=== PATIENT | male | born 1970 | race Hispanic/Latino ===

== ENCOUNTER 2017-08-23 16:28 | Emergency (ER) | payer SELFPAY ==
[~2017-08-23] VITALS: Ht 167.6 cm; Wt 68.0 kg
[2017-08-23] MEDS ORDERED: MORPHINE SULFATE 2 MG/ML SYR ONE (17:31)
[2017-08-23 17:32] LABS: BASOPHILS % 0.2 % (0.0-1.0); HEMATOCRIT 44.5 % (38.2-49.6); HEMOGLOBIN 15.2 g/dL (14.0-18.0); LYMPHOCYTES % 7.2 % (18.0-39.1); MEAN CORPUSCULAR HEMOGLOBIN 32.4 pg (28-32); MEAN CORPUSCULAR HGB CONC 34.2 g/dL (31-35); MEAN CORPUSCULAR VOLUME 94.9 fL (81-99); MONOCYTES # (AUTO) 0.3 (0.2-0.8); MONOCYTES % 2.5 % (4.4-11.3); NEUTROPHILS % 89.7 % (38.7-80.0); PLATELET COUNT 206 x10e3/uL (140-360); RED BLOOD COUNT 4.69 x10e6/uL (4.3-5.7); RED CELL DISTRIBUTION WIDTH 12.8 % (11.7-14.4)
[2017-08-23 17:33] LABS: BILIRUBIN,URINE NEGATIVE (NEGATIVE); CLARITY,URINE SL CLOUDY (CLEAR); COLOR,URINE YELLOW (YELLOW); KETONES,URINE NEGATIVE (NEGATIVE); LEUKOCYTE ESTERASE ,URINE NEGATIVE (NEGATIVE); NITRITE,URINE NEGATIVE (NEGATIVE); PROTEIN,URINE DIPSTICK NEGATIVE (NEGATIVE); URINE UROBILINOGEN 0.2 mg/dL (0.2 - 1)
[2017-08-23] MEDS: MORPHINE SULFATE 4 MG/ML SYR IV STA (17:35)
[2017-08-23] MEDS: SODIUM CHLORIDE 0.9% 1000ML 1,000 ML IV STA (17:35)
[2017-08-23] MEDS: ONDANSETRON HCL INJ 2 MG/ML VIAL IV STA ×2 (17:36→18:48)
[2017-08-23 17:39] LABS: INR 1.03; PROTHROMBIN TIME 12.7 seconds (11.9-14.5)
[2017-08-23 17:45] LABS: BACTERIA,URINE FEW /HPF; EPITHELIAL CELLS,URINE RARE /LPF; RBC,URINE 21-50 /HPF (0-5)
[2017-08-23 17:48] LABS: ALANINE AMINOTRANSFERASE 45 IU/L (0-55); ALBUMIN 4.8 g/dL (3.5-5.0); ALBUMIN/GLOBULIN RATIO 1.3 (0.8-2.0); ALKALINE PHOSPHATASE 89 IU/L (40-150); AMYLASE 55 U/L (25-125); ANION GAP 16.4 mmol/L (8-16); BLOOD UREA NITROGEN 14 mg/dL (7-26); BUN/CREATININE RATIO 11 (6-25); CALCIUM 10.1 mg/dL (8.4-10.2); CARBON DIOXIDE 28 mmol/L (22-29); CHLORIDE 99 mmol/L (98-107); CREATINE KINASE 83 IU/L (30-200); EST GLOMERULAR FILTRATION RATE 60 ML/MIN (60-); GLUCOSE 152 mg/dL (74-118); LIPASE 41 U/L (8-78); POTASSIUM 4.4 mmol/L (3.5-5.1); SODIUM 139 mmol/L (136-145)
--- NOTE | 2017-08-23 18:01 | Diagnostic Imaging Report ---
PROCEDURE: CT ABDOMEN AND PELVIS WITHOUT CONTRAST TECHNIQUE: The abdomen and pelvis were scanned utilizing a multidetector helical scanner from the diaphragm to the lesser trochanter without contrast per stone protocol. Coronal and sagittal multiplanar reformations were obtained. Total DLP: 269.28 mGy-cm COMPARISON: None. INDICATIONS: LEFT FLANK PAIN FINDINGS: ABSENCE OF INTRAVENOUS CONTRAST DECREASES SENSITIVITY FOR DETECTION OF FOCAL LESIONS AND VASCULAR PATHOLOGY. LOWER THORAX: Normal. HEPATOBILIARY: Diffuse hepatic steatosis. No focal hepatic lesions. No biliary ductal dilatation. SPLEEN: No splenomegaly. PANCREAS: No focal masses or ductal dilatation. ADRENALS: No adrenal nodules. KIDNEYS/URETERS: No right hydronephrosis or solid mass lesions. 0.3 cm right renal stone. 0.4 cm distal left ureteral stone near the left UVJ. Mild left hydroureter with very trace left hydronephrosis. Subtle asymmetric fat stranding around the left kidney. PELVIC ORGANS/BLADDER: Unremarkable. PERITONEUM / RETROPERITONEUM: No free air or fluid. LYMPH NODES: No lymphadenopathy. VESSELS: Unremarkable. GI TRACT: Diffuse gastric distention. No distention or wall thickening. BONES AND SOFT TISSUES: Unremarkable. IMPRESSION: 1. 0.4 cm distal left ureteral stone near the left UVJ causing trace left hydroureter and left hydronephrosis. 2. 0.3 cm nonobstructing right renal stone. 3. Gastric distention. Dictated by: Luciano Jonas M.D. on 08/23/2017 at 18:00 Electronically approved by: Luciano Jonas M.D. on 08/23/2017 at 18:00
[2017-08-23] MEDS: KETOROLAC TROMETHAMINE 30 MG/ML VIAL IV STA (18:47)
[2017-08-23] MEDS: CEFTRIAXONE SOD 1 GM VIAL IV ONE (18:48)
[2017-08-23 19:39] VITALS: BP 100/68
== END 2017-08-23 19:50 | disposition home or self-care (01) ==
LOC: ER 16:28
DX: N30.91 Cystitis, unspecified with hematuria (principal); N13.2 Hydronephrosis with renal and ureteral calculous obstruction; N20.2 Calculus of kidney with calculus of ureter
CPT/HCPCS: 36415; 74176; 80053; 81001; 82150; 82550; 82553; 83690; 84484; 85025; 85610; 85730; 93005; 99284; J0696; J1885; J2270; J2405; J7030